=== PATIENT | male | born 1965 | race Caucasian/White ===

== ENCOUNTER 2022-03-22 13:16 | Outpatient (REF) | payer OTHER, SELFPAY ==
--- NOTE | ~2022-03-22 | CT_ITS ---
EXAMINATION: CT CHEST SCREENING CLINICAL INFORMATION: Current smoker. 40 pack year history. COMPARISON: None. TECHNIQUE: Multidetector volumetric CT imaging of the chest is performed without contrast using low dose technique. Additional 2D coronal and sagittal reformatted images and axial 3D maximum intensity projection (MIP) images are generated on the CT workstation. This CT examination was performed using dose optimization techniques as appropriate, variously including the following: *Automated exposure control *Adjustment of mA and/or kV according to patient size (this includes techniques or standardized protocols for targeted exams where dose is matched to indication/reason for exam; i.e. extremities or head) *Use of iterative reconstruction technique DLP: 47 mGy-cm FINDINGS: LUNGS: There is evidence of mild paraseptal emphysema. There is mild apical pleural and parenchymal scarring. There is a 3 mm peripheral or subpleural lingular nodule axial image 373 series 5. There is a small 2 mm peripheral or subpleural left lower lobe nodule adjacent to the pleural fissure axial image 345 series 5. Probably represents a subpleural lymph node. There is a 2 mm right upper lobe nodule axial image 157 series 5. The lungs are otherwise clear. No endobronchial or endotracheal lesion. MEDIASTINUM: The mediastinum is normal. PLEURA: There is no pleural effusion. No pleural mass or thickening. AXILLA: No lymphadenopathy. UPPER ABDOMEN: Diverticulosis of the colon. OSSEOUS STRUCTURES: There are recent appearing left posterior ninth and 10th rib fractures. There are mild degenerative changes of the spine. CT/CT lung screening IMPRESSION: Emphysema. Small pulmonary nodules or micronodules. Healing left posterior ninth and 10th rib fractures. ASSESSMENT: Lung-RADS category 2: Benign RECOMMENDATION: Annual low-dose chest CT follow-up recommended.
== END 2022-03-22 13:17 | disposition home or self-care (01) ==
LOC: HO.CT 13:16
PROVIDERS: Visit Provider Physician Assistant Medical
DX: F17.210 Nicotine dependence, cigarettes, uncomplicated (principal)
CPT/HCPCS: 71271; G0296

== ENCOUNTER 2023-09-12 09:07 | Outpatient (REF) | payer OTHER, SELFPAY ==
[2023-09-12 11:18] LABS: MANUAL DIFF FLAG NO
[2023-09-12 11:40] LABS: Basophils Percent Auto 0.3 % (0-2); Eosinophils Absolute Auto 0.1 X10*3/uL (0.0-0.4); Eosinophils Percent Auto 0.5 % (0-4); Hematocrit 45.2 % (42.0-52.0); Hemoglobin 15.8 g/dl (14.0-18.0); Imm Gran Abs Auto 0.04 X10*3/uL (0.00-0.03); Imm Gran Pct Auto 0.4 % (0.0-0.4); Lymphocytes Absolute Auto 2.7 X10*3/uL (1.2-4.9); Lymphocytes Percent Auto 29.6 % (20-40); Mean Corpuscular Hemoglobin 31.5 pg (27.0-33.0); Mean Corpuscular Volume 90.2 fL (80.0-98.0); Mean Platelet Volume 10.5 fL (9.4-12.4); Monocytes Absolute Auto 0.8 X10*3/uL (0.1-1.2); Monocytes Percent Auto 8.8 % (2-11); Neutrophils Absolute Auto 5.6 x10*3/uL (2.0-8.3); Neutrophils Percent Auto 60.4 % (45-73); Platelet Count 250 X10*3/uL (160-400); Red Blood Count 5.01 X10*6/uL (4.60-5.80); Red Cell Distribution Width 11.8 % (11.0-16.0); White Blood Count 9.2 X10*3/uL (4.8-10.8)
[2023-09-12 12:10] LABS: Cholesterol 227 mg/dL (<200); HDL Cholesterol 52 mg/dL (>40); LDL Cholesterol Calculated 147 mg/dL (<100); Triglycerides 143 mg/dL (<150)
[2023-09-12 12:11] LABS: Alanine Aminotransferase 26 U/L (0-40); Albumin Level 4.6 g/dL (3.5-5.0); Alkaline Phosphatase 62 U/L (39-117); Anion Gap 11 (12-20); Aspartate Amino Transferase 19 U/L (5-37); Bilirubin Total 0.6 mg/dL (0.0-1.0); Blood Urea Nitrogen 13 mg/dL (9-16); Calcium 9.6 mg/dL (8.4-10.2); Carbon Dioxide 24 mmol/L (22-29); Chloride 107 mmol/L (96-108); Estimated Glomerular Filt Rate > 60; Glucose Random 100 mg/dL (60-115); Potassium 4.1 mmol/L (3.3-5.1); Sodium 138 mmol/L (135-145)
[2023-09-12 12:20] LABS: Syphilis Screen Nonreactive (Nonreactive)
[2023-09-12 12:38] LABS: Reflex LDLD? No
[2023-09-12 14:45] LABS: CT PCR NOT DETECTED (Not Detect.); NG PCR NOT DETECTED (Not Detect.)
[2023-09-13 16:34] LABS: HIV RNA PCR Qn Copies <20 DETECTED copies/mL (NOT DETECTED); HIV RNA PCR Qn Log Copies <1.30 DETECTED (NOT DETECTED)
[2023-09-14 17:14] LABS: TS Negative Control Passed; TS Panel A 0; TS Panel B 0; TS Positive Control Passed; TSpotTB Negative (Negative)
[2023-09-15 07:08] LABS: Absolute CD3 Count 2471 cells/uL (840-3060); Absolute CD4 Count 1409 cells/uL (490-1740); Absolute CD8 Count 1081 cells/uL (180-1170); Absolute Lymphocytes 2811 cells/uL (850-3900); Percent CD3 Cells 88 % (57-85); Percent CD4 Cells 50 % (30-61); Percent CD8 Cells 38 % (12-42)
== END 2023-09-12 09:08 | disposition home or self-care (01) ==
LOC: HO.HHCL 09:07
PROVIDERS: Visit Provider Student in an Organized Health Care Education/Training Program
DX: Z11.1 Encounter for screening for respiratory tuberculosis (principal); Z21 Asymptomatic human immunodeficiency virus [HIV] infection status; Z20.2 Contact with and (suspected) exposure to infections with a predominantly sexual mode of transmission; E78.5 Hyperlipidemia, unspecified
CPT/HCPCS: 0353U; 36415; 80053; 80061; 85025; 86359; 86360; 86481; 86780; 87536

== ENCOUNTER 2024-05-06 09:20 | Outpatient (REF) | payer OTHER, SELFPAY ==
[2024-05-06 11:22] LABS: MANUAL DIFF FLAG NO
[2024-05-06 11:34] LABS: Basophils Absolute Auto 0.1 X10*3/uL (0.0-0.2); Basophils Percent Auto 0.6 % (0-2); Eosinophils Absolute Auto 0.1 X10*3/uL (0.0-0.4); Hematocrit 45.4 % (42.0-52.0); Hemoglobin 15.9 g/dl (14.0-18.0); Imm Gran Abs Auto 0.04 X10*3/uL (0.00-0.03); Imm Gran Pct Auto 0.4 % (0.0-0.4); Lymphocytes Absolute Auto 2.6 X10*3/uL (1.2-4.9); Lymphocytes Percent Auto 27.8 % (20-40); Mean Corpuscular Hemoglobin 31.9 pg (27.0-33.0); Mean Platelet Volume 10.2 fL (9.4-12.4); Monocytes Absolute Auto 0.9 X10*3/uL (0.1-1.2); Monocytes Percent Auto 9.3 % (2-11); Neutrophils Absolute Auto 5.6 x10*3/uL (2.0-8.3); Neutrophils Percent Auto 60.9 % (45-73); Platelet Count 247 X10*3/uL (160-400); Red Blood Count 4.99 X10*6/uL (4.60-5.80); Red Cell Distribution Width 11.9 % (11.0-16.0); White Blood Count 9.2 X10*3/uL (4.8-10.8)
[2024-05-06 11:55] LABS: Alanine Aminotransferase 21 U/L (0-40); Albumin Level 4.6 g/dL (3.5-5.0); Alkaline Phosphatase 71 U/L (39-117); Anion Gap 14 (12-20); Aspartate Amino Transferase 19 U/L (5-37); Bilirubin Total 0.7 mg/dL (0.0-1.0); Blood Urea Nitrogen 11 mg/dL (9-16); Calcium 9.6 mg/dL (8.4-10.2); Carbon Dioxide 24 mmol/L (22-29); Chloride 105 mmol/L (96-108); Estimated Glomerular Filt Rate > 60; Glucose Random 95 mg/dL (60-115); Potassium 4.4 mmol/L (3.3-5.1); Sodium 139 mmol/L (135-145)
[2024-05-11 14:48] LABS: HIV RNA PCR Qn Copies NOT DETECTED copies/mL (NOT DETECTED); HIV RNA PCR Qn Log Copies NOT DETECTED (NOT DETECTED)
[2024-05-11 15:18] LABS: Absolute CD3 Count 2304 cells/uL (840-3060); Absolute CD4 Count 1397 cells/uL (490-1740); Absolute CD8 Count 908 cells/uL (180-1170); Absolute Lymphocytes 2645 cells/uL (850-3900); CD4 CD8 Ratio 1.54 (0.86-5.00); Percent CD3 Cells 87 % (57-85); Percent CD4 Cells 53 % (30-61); Percent CD8 Cells 34 % (12-42)
== END 2024-05-06 09:21 | disposition home or self-care (01) ==
LOC: HO.HHCL 09:20
PROVIDERS: Visit Provider Internal Medicine
DX: Z21 Asymptomatic human immunodeficiency virus [HIV] infection status (principal)
CPT/HCPCS: 36415; 80053; 85025; 86359; 86360; 87536

== ENCOUNTER 2024-11-18 08:56 | Outpatient (REF) | payer OTHER, SELFPAY ==
--- OUTSIDE RECORDS SUMMARY | 2024-11-18 09:11 | XMS_ITS | Data Portability ---
Author Organization [facility], [facility], [facility] Address [address] [place] [address] Assessment Encounter Date Assessment Date Assessment LastModified by Organization Details LastModified Time 04/07/2018 04/07/2018 Plantar fasciitis left foot greater than right [email or web address] Not available 04/07/2018 09:22:39 04/28/2018 04/28/2018 -continue w/ New arch supports. -call if not getting better for PT Not available 04/28/2018 08:30:10 Plan of Treatment Reminders Order Date Submit Date Provider Last Modified By Organization Details Last Modified Time Details Appointments None recorded . Lab None recorded . Referral podiatri st referral - L heel pain 2017 018 [email or web address] Josue Julian DPM, [address] [facility], [place], [address], 8 09:45:21 health coaching referral - 52 yo m who wants to do nrt 2017 018 [employer], [address] [place], [address], 9 06:59:01 Procedures None recorded . Surgeries None recorded . Imaging None recorded . Medication Orders nicotine 21 mg/24 hr daily transder mal patch 2017 [id number], [address] [place], [address], 8 08:10:30 Nicotrol 10 mg inhalati on cartridg e 2017 018 [place] [id number], [address] [place], [address], 8 08:10:39 nicotine 21 mg/24 hr daily transder mal patch 2017 018 [facility][id number], [address] [place], [address], 8 08:29:51 Nicotrol 10 mg inhalati on cartridg e 2017 018 [facility]FACE [id number], [address] [place], [address], 8 08:29:50 nicotine (polacri amber) 4 mg gum 2017 018 INTERFACE [id number], [address] [place], [address], 8 08:29:50 Patient TargetsNo targets recorded. Patient Instructions Encounter Date Encounter Id Patient Instructions Last Modified By Organization Details Last Modified Time 01/29/2018 [id number] deciding about using medicines to quit smoking [email or web address] Not available 01/29/2018 10:41:10 Quitting Tobacco : Care Instructions [email or web address] Not available 01/29/2018 10:41:10 Counseling done {{Patient not ready to quit Contemplating quitting Tapering Cigarettes signed up for support prescripti on for stop smoking medication given}} {{Patient not ready to quit Contemplating quitting Tapering Cigarettes signed up for support prescripti on for stop smoking medication given}} Goal for follow up visit {{adding exercise regular meals stress management improvi ng sleep therapist identifying sponsor}} {{adding exercise regular meals stress management improvi ng sleep therapist identifying sponsor}} {{adding exercise regular meals stress management improvi ng sleep therapist identifying sponsor}}My Health To Do List {{go to [facility] Call Center or call sig n up for mauricio text 2 quit or other stop smoking mauricio contact SpaceCur[employer].gov}} {{go to [employer] Call Center or call sig n up for mauricio text 2 quit or other stop smoking mauricio contact [employer]}} {{go to Virtual Call Center or call sig n up for mauricio text 2 quit or other stop smoking mauricio contact [employer]}} [email or web address] Not available 01/29/2018 10:33:18 03/24/2018 [id number] Counseling done {{Patient not ready to quit Contemplating quitting* Tapering Cigarettes signed up for support prescripti on for stop smoking medication given}} {{Patient not ready to quit Contemplating quitting Tapering Cigarettes signed up for support prescripti on for stop smoking medication given*}} Goal for follow up visit {{adding exercise regular meals stress management* improv ing sleep therapist identifying sponsor}} {{adding exercise regular meals stress management improvi ng sleep therapist identifying sponsor}} {{adding exercise regular meals stress management improvi ng sleep therapist identifying sponsor}} After a discussion of treatment and medication options, which included consideration of the best practices in medicine, a medical plan was provided. The patient's opinions and concerns were included in this treatment plan and goal. {{go to Virtual Call Center or call sig n up for mauricio text 2 quit or other stop smoking mauricio contact [employer]}} {{go to Virtual Call Center or call sig n up for mauricio text 2 quit or other stop smoking mauricio contact [employer]}} follow up in 1 month for smoking. {{go to Virtual Call Center or call sig n up for mauricio text 2 quit or other stop smoking mauricio contact smokeLabDoor.gov}} Counseling done {{Patient not ready to quit Contemplating quitting Tapering Cigarettes signed up for support prescripti on for stop smoking medication given}} {{Patient not ready to quit Contemplating quitting Tapering Cigarettes signed up for support prescripti on for stop smoking medication given}} Goal for follow up visit {{adding exercise regular meals stress management improvi ng sleep therapist identifying sponsor}} {{adding exercise regular meals stress management improvi ng sleep therapist identifying sponsor}} {{adding exercise regular meals stress management improvi ng sleep therapist identifying sponsor}} My Health To Do List {{go to quitPearlfection[employer] or call sig n up for mauricio text 2 quit or other stop smoking mauricio contact smokefrRAREFORM.gov}} {{go to quitBushido or call sig n up for mauricio text 2 quit or other stop smoking mauricio contact smokefree.gov}} {{go to quitBushido or call sig n up for mauricio text 2 quit or other stop smoking mauricio contact smokeLabDoor.gov}} Not available 03/24/2018 17:29:45 04/07/2018 [id number] Patient states h e will pursue prefabricated orthotics at this time and return if symptoms persist. [email or web address] Not available 04/07/2018 09:22:54 04/28/2018 [id number] deciding about using medicines to quit smoking Not available 04/28/2018 08:29:49 Counseling done {{Patient not ready to quit Contemplating quitting* Tapering Cigarettes signed up for support prescripti on for stop smoking medication given}} {{Patient not ready to quit Contemplating quitting Tapering Cigarettes signed up for support prescripti on for stop smoking medication given}} -After a discussion of treatment and medication options, which included consideration of the best practices in medicine, a medical plan was provided. The patient's opinions and concerns were included in this treatment plan and goal. -SEE THE GOALS AND PLAN IN THE ASSESSMENT AND PLAN SECTION WRITTEN ABOVE. {{go to quitBushido or call sig n up for mauricio text 2 quit or other stop smoking mauricio contact smokefree.gov}} {{go to quitBushido or call sig n up for mauricio text 2 quit or other stop smoking mauricio contact smokefree.gov}} {{go to quitBushido or call sig n up for mauricio text 2 quit or other stop smoking mauricio contact [employer]}} Not available 04/28/2018 08:31:39 07/09/2018 [id number] deciding about using medicines to quit smoking Not available 07/09/2018 08:26:07 Quitting Tobacco : Care Instructions Not available 07/09/2018 08:26:07 -Push fluids -Re st -Prop up to sleep -Rapid negative for strep -Throat culture will back 48 hours -1 tbsp. honey in warm liquid to help with cough if needed -Symptoms may worsen for the first 7-10 days before they improve -For high fever (>101) for more than 3 days, worsening shortness of breath, cough productive of rust-colored mucus (not dark yellow), or symptoms unchanged at two weeks, come back in for reassessment (urgent care available in [place] office Sat 9-4 and Friday 9-12 by appointment - call after 8AM for appt. [phone]) Not available 07/09/2018 08:30:11 Reason for Referral Information Receptionist Referral for Plan tar fasciitis L heel pain Referring Physician: Paula Carmona, Family Medicine, Encounter Date: 03/24/2018 Health Coaching Referral for Tobacco user 52 yo m who wants to do nrt Referring Physician: Paula Carmona Family Medicine, Encounter Date: 04/28/2018 Results Created Date Observation Date Name Description Value Unit Range Abnormal Flag Note LastModifiedBy Organization Detail LastModifiedTime 07/09/20 18 07/09/2018 pocst pa strep A POC Negati ve Not Available [address], [place], [address], 07/09/2018 08:26:19 07/09/20 18 07/12/2018 cultu re, throa t culture, throat CULTU RE, THROA T MICRO NUMBE R: [id number] TEST STATU S: FINAL SPECI MEN SOURC E: THROA T SPECI MEN QUALI TY: ADEQU ATE RESUL T: No oroph aryng eal patho gens recov ered. Not Available [facility] [address], [place], [address], 07/14/2018 09:57:21 Result Notes None recorded. Procedures Surgical History Date Name Laterality Status Provider Name and Address Organization Details Recorded Time 3 Khoa - Colonoscopy completed Garfield Couch MD [address] [place] [address], [id number], [facility] 10/21/2022 14:15:03 Imaging Results None recorded. Procedure Notes None recorded. Medical Equipment None Reported. Allergies No known drug allergies Medications Name Sig Start Date Stop Date Status Note LastModified by Organization Details LastModified Time amoxicilli n 500 mg capsule 1 po tid x10d 03/18 completed Pt no longer taking. Not Available Not Available Not Available nicotine 14 mg/24 hr daily transderma l patch Apply 1 patch every day by transder mal route. 03/18 completed Pt no longer taking. Not Available Not Available Not Available nicotine (polacrile x) 2 mg gum Chew 1 piece of gum every 2 hours by oral route. 2012 active Not Available Not Available Not Avai lable Zithromax Z-Kristopher 250 mg tablet Take 2 tablets (500 mg) by oral route once daily for 1 day then 1 tablet (250 mg) by oral route once daily for 4 days 2014 active Not Available Not Available Not Avai lable Wellbutrin SR 150 mg tablet, 12 hr sustained- release Take 1 tablet twice a day by oral route for 90 days. 03/18 completed Pt no longer taking. Not Available Not Available Not Available Nicotrol 10 mg inhalation cartridge 6-16 cartridg es/day inhaled prn 2017 active Not Available Not Available Not Avai lable Tessalon Perles 100 mg capsule Take 1-2 capsules up to 3 times a day as needed for cough 03/18 completed Pt no longer taking. Not Available Not Available Not Available nicotine (polacrile x) 4 mg gum Chew 1 piece of gum every 2 hours by oral route as needed. 2017 active Not Available Not Available Not Avai lable doxycyclin e monohydrat e 100 mg capsule Take 1 capsule twice a day by oral route for 21 days. 10/08 completed Not Available Not Available Not Available bupropion HCl 75 mg tablet Take 1 tablet twice a day by oral route for 30 days. 2013 active Not Available Not Available Not Avai lable nicotine 21 mg/24 hr daily transderma l patch Apply 1 patch every day by transder mal route. 2017 active Not Available Not Available Not Avai lable Viagra 100 mg tablet 1/4 to 1 tab 30 min before sexual activity 03/18 completed Not Available Not Available Not Available amoxicilli n 875 mg-potassi um clavulanat e 125 mg tablet Take 1 tablet every 12 hours by oral route for 10 days. 10/01 completed Not Available Not Available Not Available vitamin A and D 1 tab 01/29 completed Not Available Not Available Not Available Flonase Allergy Relief 50 mcg/actuat ion nasal spray,susp ension [place] 1 spray every day by intranas al route. 03/18 completed Pt no longer taking. Not Available Not Available Not Available Vitals None Recorded Social History Question Answer Notes LastModified by Organizat ion Details LastModified Time What Is Your Level Of Alcohol Consumption? Occasional 0-5/week. No Hx Abuse [id number] Information not available 08/15/2020 Do You Wear A Helmet When Biking? Yes [id number] Information not available 08/15/2020 What Is Your Level Of Caffeine Consumption? Moderate 2 Cups A Day [id number] Information not available 08/15/2020 How Much Tobacco Do You Chew? None [id number] Information not available 08/15/2020 What Type Of Diet Are You Following? 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 No [id number] Information not available 08/15/2020 Live Alone Or With Others? With Others [email or web address] Information not available 09/12/2011 Does The Patient Have Difficulty Speaking [place]er? No Information not available 09/21/2013 Does The Patient Have Difficulty Reading [place]er? No Information not available 09/21/2013 Patient Has Health Care Proxy Signed And In Chart No 01/22/17 [email or web address] Information not available 10/29/2011 Marital Status Informa tion not available 09/21/2013 Mosquito Repellent Used Routinely Yes Information not available 09/21/2013 What Was The Date Of Your Most Recent Tobacco Screening? 03/24/2018 [id number] Information not available 08/15/2020 How Many Children Do You Have? 1 Son B'14 [id number] Information not available 08/15/2020 What Is Your Current Pack Years? 20-29packyears [id number] Information not available 08/15/2020 Seat Belts Used Routinely Yes Information not available 09/21/2013 Are You Sexually Active? Yes [id number] Information not available 08/15/2020 Smoke Alarm In Home Yes Information not available 09/21/2013 At What Age Did You Start Smoking Tobacco? 17 [id number] Information not available 08/15/2020 Do You Use Sunscreen Routinely? Yes [id number] Information not available 08/15/2020 Sex: Unknown Functional Status None recorded. Mental Status None recorded. Family History Nothing Reported Notes:adopted, does not know family history VINNIE: 0 SON: 1: a&w Medical History No medical history recorded. Past Encounters Encounter ID Performer Location Encounter Start Date Encounter Closed Date Diagnosis/Indication Diagnosis SNOMED-CT Code Diagnosis ICD10 Code Diagnosis Note [id number] [facility], OFFICE [address] [place] [address] 09/12/2011 14:57:42 09/12/2011 16:02:50 [id number] [facility] , [address] [place] [address] 09/12/2011 16:06:21 09/13/2011 11:21:20 [id number] [facility] , [address] [place] [address] 09/13/2011 08:10:44 09/16/2011 14:26:[id number] [facility], OFFICE [address] [place] [address] [place] [address] 10/29/2011 08:04:20 10/29/2011 08:53:09 [id number] [facility], OFFICE [address] [place] [address] [place] [address] 02/10/2012 11:20:21 02/10/2012 12:25:58 [id number] Jannie Pacheco FERNÁNDEZ, [facility] OFFICE [address] [place] [address] [place] [address] 12/11/2012 10:41:54 12/11/2012 11:21:11 [id number] SHAREE Chamberlain [facility], OFFICE [address] [place] [address] [place] [address] 02/26/2013 14:49:43 02/26/2013 15:57:55 [id number] JOLENE [facility], OFFICE [address] [place] [address] [address] [place], [place] [address] 04/05/2013 09:51:55 04/05/2013 10:34:59 [id number] Janis FERNÁNDEZ [address] [place] [address] 09/21/2013 08:01:27 09/21/2013 08:36:16 [id number] SHAREE Chamberlain [facility], [address] [place] [address] 03/14/2014 16:03:38 03/14/2014 16:34:04 [id number] CATRINA Dhillon, [address] [place] [address] 08/26/2014 13:50:15 08/26/2014 14:23:25 [id number] SHAREE Chamberlain [address] [place] [address] 02/10/2015 10:16:58 02/10/2015 11:30:31 [id number] Alycia FERNÁNDEZ [facility], OFFICE [address] [place] [address] [place] [address] 06/23/2015 07:45:22 06/23/2015 08:17:20 [id number] Елена Smith, OT Physical Therapy, [address] [place] [address] 07/03/2015 15:48:26 07/03/2015 16:38:43 [id number] DOUGLAS Luna, [facility], OFFICE [address] [place] [address] 10/08/2016 10:31:23 10/08/2016 11:24:50 [id number] NUHA Polanco, [facility], OFFICE [address] [place] [address] 01/22/2017 13:35:58 01/23/2017 14:29:04 [id number] MD JOLENE Potter, [facility], OFFICE [address] [place], [place] [address] 03/18/2017 13:40:02 03/18/2017 14:21:20 [id number] Aline Oscar MD , [facility], OFFICE [address] [place] [address] 10/01/2017 08:46:16 10/01/2017 09:28:56 [id number] NUHA Polanco, [facility], OFFICE [address] [place] [address] [place] [address] 01/29/2018 10:20:38 01/29/2018 10:58:39 [id number] Paula Carmona NP , [facility], OFFICE [address] [place] [address], [place] [address] 03/24/2018 16:15:04 03/24/2018 17:23:50 [id number] Josue Julian DPM Podiatry, [address] [address] 04/07/2018 08:49:03 04/07/2018 09:24:01 [id number] Paula Carmona NP , [facility], OFFICE [address] [place] [address], [place] [address] 04/28/2018 07:58:52 04/28/2018 08:36:19 [id number] Gabriella Pederson , [facility], OFFICE [address] [place] [address] 07/09/2018 08:07:48 07/09/2018 08:31:24 [id number] Farzana Cagle RN Endoscopy , [facility] [address] [place] [address] 10/21/2022 12:51:59 10/22/2022 08:23:57 Health Concerns Section Related Observation LastModified by Organization Detai ls LastModified Time None Recorded Concern Status LastModified by Organization Details LastModified Time None Recorded Advance Directives Directive None Recorded Payers Encounter Date Sequence Insurance Name Policy Number Policy Craven Covered Member ID Craven Member ID Guarantor Name 01/29/2018 1 [facility] [id number] 01 Geo Gardner [id number] Geo Gardner 03/24/2018 1 [facility] [id number] 01 Geo Gardner [id number] Geo Gardner 04/07/2018 1 [facility] [id number] 01 Geo Gardner [id number] Geo Gardner 04/28/2018 1 [facility] [id number] 01 Geo Gardner [id number] Geo Gardner 07/09/2018 1 [facility] [id number] 01 Geo Gardner [id number] Geo Gardner
--- OUTSIDE RECORDS SUMMARY | 2024-11-18 09:11 | XMS_ITS | Data Portability ---
Author Organization [place] - [facility], , [facility] Address [address] [place] [address] Assessment Encounter Date Assessment Date Assessment LastModified [...] referral - L heel pain 2017 018 Josue Julian DPM, [address] [facility], [place], [address], 8 09:45:21 health coaching referral - 52 yo m who wants to do nrt 2017 018 S[facility], [address] [place], [address], 9 06:59:01 Procedures None recorded . Surgeries None recorded . Imaging None recorded . Medication Orders nicotine 21 mg/24 hr daily transder mal patch 2017 [facility], [address] [place], [address], 8 08:10:30 Nicotrol 10 mg inhalati on cartridg e 2017 018 [employer] [facility], [address] [place], [address], 8 08:10:39 nicotine 21 mg/24 hr daily transder mal patch 2017 018 [facility], [address] [place], [address], 8 08:29:51 Nicotrol 10 mg inhalati on cartridg e 2017 018 [facility], [address] [place], [address], 8 08:29:50 nicotine (polacri amber) 4 mg gum 2017 018 [facility], [address] [place], [address], 8 08:29:50 Patient TargetsNo targets recorded. Patient Instructions Encounter Date Encounter Id Patient Instructions Last Modified By Organization Details Last Modified Time 01/29/2018 [id number] deciding about using medicines to quit smoking [...] sponsor}}My Health To Do List {{go to TandemLaunch or call sig n up for mauricio text 2 quit or other stop smoking mauricio contact DNS:Net.gov}} {{go to TandemLaunch or call sig n up for mauricio text 2 quit or other stop smoking mauriico contact DNS:Net.gov}} {{go to TandemLaunch or call sig n up for mauricio text 2 quit or other stop smoking mauricio contact DNS:Net.gov}} [email or web address] Not available 01/29/2018 10:33:18 03/24/2018 [id number] Counseling done {{Patient not ready to quit [...] this treatment plan and goal. {{go to TandemLaunch or call sig n up for mauricio text 2 quit or other stop smoking mauricio contact DNS:Net.gov}} {{go to TandemLaunch or call sig n up for mauricio text 2 quit or other stop smoking mauricio contact DNS:Net.gov}} follow up in 1 month for smoking. {{go to TandemLaunch or call sig n up for mauricio text 2 quit or other stop smoking mauricio contact smokeDark Mail Alliance.gov}} Counseling done {{Patient not ready to quit [...] My Health To Do List {{go to [email or web address] or call sig n up for mauricio text 2 quit or other stop smoking mauricio contact smokefrL3.gov}} {{go to quitPersoneta or call sig n up for mauricio text 2 quit or other stop smoking mauricio contact smokefree.gov}} {{go to quitPersoneta or call sig n up for mauricio text 2 quit or other stop smoking mauricio contact smokeDark Mail Alliance.gov}} Not available 03/24/2018 17:29:45 04/07/2018 [id number] Patient states h e will pursue prefabricated orthotics at this time and return if symptoms persist. [email or web address] Not available 04/07/2018 09:22:54 04/28/2018 [id number] deciding about using medicines to quit smoking [...] AND PLAN SECTION WRITTEN ABOVE. {{go to quitPersoneta or call sig n up for mauricio text 2 quit or other stop smoking mauricio contact smokefree.gov}} {{go to quitPersoneta or call sig n up for mauricio text 2 quit or other stop smoking mauricio contact smokefree.gov}} {{go to quitPersoneta or call sig n up for mauricio text 2 quit or other stop smoking mauricio contact DNS:Net.gov}} Not available 04/28/2018 08:31:39 07/09/2018 [id number] deciding about using medicines to quit smoking [...] in for reassessment (urgent care available in [place] office Sat 9-4 and Friday 9-12 by appointment - call after 8AM for appt. [phone]) Not available 07/09/2018 08:30:11 Reason for Referral Psychiatric Nurse Referral for Plan tar fasciitis L heel [...] strep A POC Negati ve Not Available [address], [place], [address], 07/09/2018 08:26:19 07/09/20 18 07/12/2018 cultu re, throa t culture, throat CULTU RE, THROA T MICRO NUMBE R: [id number] TEST STATU S: FINAL SPECI MEN SOURC E: THROA T SPECI MEN QUALI TY: ADEQU ATE RESUL T: No oroph aryng eal patho gens recov ered. Not Available [facility] [address], [place], [address], 07/14/2018 09:57:21 Result Notes None recorded. Problems Name Problem SNOMED Code Status Onset Date Resolution Date Notes Provider Name and Address Organization Details Recorded Time Upper respiratory infection 34125603 Active 2015 Sangita Maxwell NP-C [address] [place] [address] [place], [address], [facility] 6 11:20:06 Adenomatous polyp of colon 434818095 Active 2016 Colono scopy- - March 2017-- Repeat 5 years Aline Oscar MD [address] [place] [address] [place], [address], [facility] 7 09:28:28 Tobacco user 864175836 Active Elisa Thorne NP [address] [place] [address] [place], [address], [facility] 5 08:23:27 Problem Notes None recorded. Procedures Surgical History Date Name Laterality Status Provider Name and Address Organization Details Recorded Time 8 Smoking cessation counseling completed Gabriella Pederson [address] [place], [address], [facility] 07/09/2018 08:19:58 8 Carbon Monoxide Testing completed Gabriella Pederson [address] [place], [address], [facility] 07/09/2018 08:19:58 8 POC Strep Testing completed Lidia Page [facility] 07/09/2018 08:16:58 8 Smoking cessation counseling completed Lidia Page [facility] 04/28/2018 08:07:28 8 Carbon Monoxide Testing completed Lidia Page [facility] 04/28/2018 08:07:28 8 Smoking cessation counseling completed Paula Carmona NP [address] [place], [address], [facility] 03/24/2018 17:26:50 8 Carbon Monoxide Testing completed Paula Carmona NP [address] [place], [address], [facility] 03/24/2018 17:27:19 8 Smoking cessation counseling completed Roni Springer PA-C [address] [place], [address], [facility] 01/29/2018 10:33:18 8 Carbon Monoxide Testing completed Roni Springer PA-C [address] [place], [address], [facility] 01/29/2018 10:33:18 7 POC Strep Testing completed Mary Chicas [facility] 10/01/2017 08:52:47 7 Smoking cessation counseling completed Arabella Solorzano SENIOR INTEGRATION DEVELOPER [facility] 03/18/2017 13:42:18 7 Carbon Monoxide Testing completed Arabella Solorzano SENIOR INTEGRATION DEVELOPER [facility] 03/18/2017 13:50:15 7 POC Strep Testing completed Arabella Solorzano [facility] 03/18/2017 14:06:36 7 Smoking cessation counseling completed Sandi Ledezma [facility] 01/22/2017 13:59:50 7 Carbon Monoxide Testing completed Sandi Ledezma [facility] 01/22/2017 14:10:27 6 Smoking cessation counseling completed Sandi Graff LPN [facility] 10/08/2016 10:44:08 6 Carbon Monoxide Testing completed Sandi Graff LPN [facility] 10/08/2016 10:50:35 6 POC Flu Testing completed Sandi Graff LPN [facility] 10/08/2016 10:44:43 5 Smoking cessation counseling completed Paulette Farmer MA [facility] 06/23/2015 07:53:13 5 Smoking cessation counseling completed Destinee Maynard LPN [facility] 02/10/2015 10:44:45 4 Smoking cessation counseling completed Albertina Caceres MA [facility] 03/14/2014 16:08:53 3 Smoking cessation counseling completed Rupinder Perry LPN [facility] 02/26/2013 14:56:26 Imaging Results None recorded. Procedure Notes None [...] Relief 50 mcg/actuat ion nasal spray,susp ension [place] 1 spray every day by intranas al route. 03/18 completed Pt no longer taking. Not Available Not Available Not Available Vitals Date Recorded Body height Body mass index (BMI) Body weight Heart rate Oxygen saturation Oxygen saturation in Arterial blood by Pulse oximetry Systolic blood pressure Diastolic blood pressure Provider Name and Address Organization Details Last Updated DateTime 8 171.45 cm 25.4 kg/m2 10920.2 5 g 66 /min 98 % 98 % 120 mm[Hg] 76 mm[Hg] Paulette Farmer MA [facility] 8 10:26:12 Date Recorded Body height Body mass index (BMI) Body weight Heart rate Systolic blood pressure Diastolic blood pressure Provider Name and Address Organization Details Last Updated DateTime 8 171.45 cm 25.6 kg/m2 64057.3 3 g 88 /min 114 mm[Hg] 64 mm[Hg] DAINA Albright [facility] 8 16:31:24 Date Recorded Body height Heart rate Systolic blood pressure Diastolic blood pressure Provider Name and Address Organization Details Last Updated DateTime 04/07/2018 171.45 cm 54 /min 100 mm[Hg] 60 mm[Hg] Khushi Pang RN [facility] 04/07/2018 08:58:18 Date Recorded Body height Body mass index (BMI) Body weight Heart rate Systolic blood pressure Diastolic blood pressure Provider Name and Address Organization Details Last Updated DateTime 8 171.45 cm 25.3 kg/m2 58794.5 5 g 68 /min 112 mm[Hg] 70 mm[Hg] Lidia matos [facility] 8 08:13:08 Date Recorded Body height Body mass index (BMI) Body weight Heart rate Body temperature Systolic blood pressure Diastolic blood pressure Provider Name and Address Organization Details Last Updated DateTime 8 171.45 cm 25.1 kg/m2 25316.0 6 g 64 /min 98.4 [degF] 112 mm[Hg] 68 mm[Hg] Lidia matos [facility] 8 08:16:44 Social History Question Answer Notes LastModified by Organizat ion Details LastModified Time Tobacco Smoking Status Current Every Day Smoker 1/2 ppd since . Has tried wellbutrin /chantix. 03/18/17 CO Result 23 Not Available [facility] 08/15/2020 03:17:55 What Is Your Level Of Alcohol Consumption? Occasional 0-5/week. No Hx Abuse [id number] Information not available 08/15/2020 Do You Wear A Helmet When Biking? Yes [id number] Information not available 08/15/2020 What Is Your Level Of Caffeine Consumption? Moderate 2 Cups A Day [id number] Information not available 08/15/2020 How Much Tobacco Do You Chew? None [id number] Information not available 08/15/2020 What Type Of Diet Are You Following? 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 No [id number] Information not available 08/15/2020 Live Alone Or With Others? With Others [email or web address] Information not available 09/12/2011 Does The Patient Have Difficulty Speaking Mongolian? No Information not available 09/21/2013 Does The Patient Have Difficulty Reading Mongolian? No Information not available 09/21/2013 Patient Has Health Care Proxy Signed And In Chart No 01/22/17 [email or web address] Information not available 10/29/2011 Marital Status jayy Informa tion not available 09/21/2013 Mosquito Repellent Used Routinely Yes Information not available 09/21/2013 What Was The Date Of Your Most Recent Tobacco Screening? 03/24/2018 [id number] Information not available 08/15/2020 How Many Children Do You Have? 1 Son B'14 [id number] Information not available 08/15/2020 What Is Your Current Pack Years? 20-29packyears [id number] Information not available 08/15/2020 Seat Belts Used Routinely Yes Information not available 09/21/2013 Are You Sexually Active? Yes [id number] Information not available 08/15/2020 Smoke Alarm In Home Yes [email or web address] Information not available 09/21/2013 At What Age Did You Start Smoking Tobacco? 17 [id number] Information not available 08/15/2020 Do You Use Sunscreen Routinely? Yes [id number] Information not available 08/15/2020 Sex: Unknown Functional Status None recorded. Mental Status None recorded. Family History Nothing Reported Notes:adopted, does not know family history VINNIE: 0 SON: 1: a&w Medical History No medical history recorded. Immunizations Vaccine Type Date Status Note Provider Nam e and Address Organization Details Recorded Time Tdap 02/10/2012 completed Not Available [facility] 10/30/2019 02:34:57 Influenza, split virus, trivalent, PF 08/26/2014 completed Not Available [facility] 2019 02:19:22 Influenza, split virus, quadrivalent, PF 06/23/2015 completed Not Available [facility] 0 02:26:06 Past Encounters Encounter ID Performer Location Encounter Start Date Encounter Closed Date Diagnosis/Indication Diagnosis SNOMED-CT Code Diagnosis ICD10 Code Diagnosis Note [id number] FP, [facility], OFFICE [address] [place] [address] 09/12/2011 14:57:42 09/12/2011 16:02:50 [id number] Radiology , [facility] [address] [place] [address] 09/12/2011 16:06:21 09/13/2011 11:21:20 [id number] Radiology , [facility] [address] [place] [address] 09/13/2011 08:10:44 09/16/2011 14:26:44 [id number] [facility], OFFICE [address] [place] [address] 10/29/2011 08:04:20 10/29/2011 08:53:09 [id number] [facility] OFFICE [address] [place] [address] [place] [address] 02/10/2012 11:20:21 02/10/2012 12:25:58 [id number] Jannie Pacheco [facility] OFFICE [address] [place] [address] [place] [address] 12/11/2012 10:41:54 12/11/2012 11:21:11 [id number] Paulette Farmer MA [facility], OFFICE [address] [place] [address] 02/26/2013 14:49:43 02/26/2013 15:57:55 [id number] [facility] OFFICE [address] [place] [address] [place] [address] 04/05/2013 09:51:55 04/05/2013 10:34:59 [id number] Janis Colvin [facility], OFFICE [address] [place] [address] 09/21/2013 08:01:27 09/21/2013 08:36:16 Skin lesion 06101338 Pt here after he noticed that a previously seen hyperpigme nted spot on his left leg started to increase in size and changed color to a redish purplish hue from a previously brown color, pt recetnly became aware of the change and wanted to have it checked. On exam he has a 3 mm approx skin lesion that varies in color from brown to redish to purplish, and has what it seems as a tiny area of scoriation . Pt admits that he is under the sun constantly (has a boat) and even though he tries to use sun screen as much as possible sometime he forgets. He has very fair skin and numerous freckles, I think given the change in size and color of lesion further evaluation by a dermatolof y specialist is warranted to r/o a malignant lesion of the skin. [id number] Paulette Farmer MA , [facility], OFFICE [address] [place] [address] 03/14/2014 16:03:38 03/14/2014 16:34:04 Tobacco user 567073913 counseled for 7 minutes Adult [facility] th examination 432619066 healthy see Risk Assessment and Lifestyle Change Counseling section above Counseling [id number] Skin lesion 34115599 Pt seen previously for a hyperpigme nted spot on his left leg started to increase in size and changed color to a redish purplish hue from a previously brown color, pt recetnly became aware of the change and wanted to have it checked. Pt was seen by Dermatolog ist on 09/30 who recommende d he came back to see him in October 2013 for considerat ion of a punch biopsy. pt decided to watch it, has not noticed any change in size or color, will see his dermatolog ist if he feels it does change. [id number] Destinee Maynard LPN , [facility], OFFICE [address] [place] [address] 08/26/2014 13:50:15 08/26/2014 14:23:25 Influenza vaccine needed 0674573981 106 Pain in upper limb 125103743 sees acupunctur ist Dr Buitrago (in [place]) and chiropract or for RUE ulnar parasthesi as with relief. residual focal neck ache post chiropract ic tx. Nicotine dependence 49281056 intolerant of dreams with Chantix had success with zyban at 150 but made him feel odd will try half dose BID. Seborrheic keratosis 32209348 small ton ker over right ear, is excoriated from scratching it x 6 months. tx options including cryo or surhical removal discussed for occasional itch and agreed not bothersome enough to remove. pt will observe and rto prn [id number] SHAREE Chamberlain, [facility], OFFICE [address] [place] [address] 02/10/2015 10:16:58 02/10/2015 11:30:31 Tobacco user 670232492 Bronchitis 86585773 [id number] Alycia FERNÁNDEZ, [facility], OFFICE [address] [place] [address] 06/23/2015 07:45:22 06/23/2015 08:17:20 Tobacco user 059206372 no counseling done. Influenza vaccine needed 0785585843 106 Tendinitis AND/OR tenosynovitis of wrist AND/OR hand 245374668 Likely de quervain tenosynovi tis advised PT, ice, c/w topical tx arnica referral submitted f/u prn [id number] Елена Smith, OT Physical Therapy, [facility] [address] [facility] [place] [address] 07/03/2015 15:48:26 07/03/2015 16:38:43 Hand joint pain 769549631 [id number] DOUGLAS Luna , [facility], OFFICE [address] [place] [address] 10/08/2016 10:31:23 10/08/2016 11:24:50 Cigarette smoker 03260378 F17.210 Cough 56868146 R05 Upper resp iratory infection 72539580 J06.9 he is to wait a few more days before he starts the antibiotic [id number] Roni Springer PA-C , [facility], OFFICE [address] [place] [address] 01/22/2017 13:35:58 01/23/2017 14:29:04 Adult health examination 969176181 Z00.00 Benign exam Counseling 376059431 Z71 .9 Cigarette smoker 3363551 7 F17.210 Interested in quitting. Message sent to Malachi Ziegler. May be getting patches from [facility]. Tobacco user 199018698 Z 72.0 Impotence 670065922 N52. 9 Mild. Try viagra. Screening for malignant neoplasm of colon 145643027 Z12.11 Referral for a DIRECT booked colonoscop y. This patient is a healthy ASA Class 1 or 2 patient (only mild systemic disease), or a STABLE, well controlled insulin dependent diabetic. They do not have serious cardiac disease ie [place]/angiopl asty within 1 year, symptomati c CHF; renal failure with CKD 4 or 5; take Coumadin, Plavix, Aggrenox, etc. Hand pain 59556159 M79.6 42 Helped by leyda/acu puncture. Informed can try Audra Zamzam in [facility] n. [id number] Aline Oscar MD , [facility], OFFICE [address] [place] [address] 03/18/2017 13:40:02 03/18/2017 14:21:20 Cigarette smoker 82952232 F17.210 Tobacco user 641223842 Z 72.0 Sore throat 522879696 J0 2.9 Throat cultures are pending. The appearance is similar to peritonsil lar abscess but the swelling is rather diffuse along the left soft palate . The left tonsil is swollen and there may be a small amount of exudate. There is room in the throat to swallow. Dr. Amaya came in to give a second opinion and he felt the swelling represente d more of a superficia l swelling than actual abscess Plan: Augmentin 875 twice a day For 10 days,, gargle with warm salt water per instructio ns below, I am not here tomorrow but will see him in 2 days however he will call tomorrow morning if any worse including developmen t of a fever, just feeling sicker, or any increase in pain, worse difficulty with swallowing , or change in voice. (Hot potato voice). Advice: Increase fluids a great deal, especially drink hot things like soup and tea. Rest, and I recommend napping 1-2 hours a day until you are better. Tylenol and/or ibuprofen for pain. Gargle with warm salt water at least times a day; use 1/8 teaspoon of salt to 6-8 ounces of warm water. NOTE: STREP THROAT, based on positive quick strep test [id number] Aline Oscar MD , [facility], OFFICE [address] [place] [address] 10/01/2017 08:46:16 10/01/2017 09:28:56 Sore throat 616396612 J02.9 Your sore throat is not felt to be a strep throat. It is felt to be viral. In most cases we send a formal culture to the lab to confirm this. Advice: Increase fluids a great deal, especially drink hot things like soup and tea. Rest, and I recommend napping 1-2 hours a day until you are better. Tylenol and/or ibuprofen for pain. Gargle with warm salt water several times a day; use 1/8 teaspoon of salt to 6-8 ounces of warm water. If your sore throat is still present in 5-7 days please contact us, and call sooner if you are developing significan t worsening such as developing a fever or inability to tolerate any oral intake. Acute uppe r respiratory infection 28173626 J06.9 You have an upper respirator y infection. These are generally caused by viruses and do not respond to antibiotic s. The most important things to do are getting extra rest, additional fluids especially hot things like tea and soup, and some nasal spray that I will explain. As far as the rest I recommend napping. This will help your immune system to fight this off. The most important nasal spray is SALT WATER NOSE DROPS which is helpful for thinning out the mucus and for keeping your nose from getting very dry. Please use it FREQUENTLY . This can be found over-the-c ounter at all drugstores . -1 tbsp. honey in warm liquid to help with cough If you are still having the same symptoms 7-10 days from now please return to be reevaluate d. call us sooner if you are getting worse such as -For high fever (>101) for more than 3 days, worsening shortness of breath, cough productive of rust-color ed mucus, or marked increase of dark yellow or dark green mucus. Tobacco user 501858329 Z 72.0 Smokes 7-8 cigarettes a day, working on quitting and trying to quit by New Day. Encouraged to continue with this plan. Cigarette smoker 7024342 7 F17.356 [id number] Roni Springer PA-C , [facility], OFFICE [address] [place] [address] 01/29/2018 10:20:38 01/29/2018 10:58:39 Cigarette smoker 03975183 F17.210 Interested in quitting. Working on it. Tobacco user 747153784 Z 72.0 Palpitations 15648284 R0 0.2 Nl w/u in [facility]> Even had palpitatio n sx when on the monitor. IF persisting , call and I'll set up holter monitor. [id number] Paula Carmona NP , [facility], OFF[address] [place] [address] 03/24/2018 16:15:04 03/24/2018 17:23:50 Plantar fasciitis 456385652 M72.2 -Ice-Heel cup-Stetch ing exercises from Patient Advisor Tobacco user 019354361 Z 72.0 -follow up in 1 month [id number] Josue Julian DPM Podiatry, [address] [address] 04/07/2018 08:49:03 04/07/2018 09:24:01 Plantar fasciitis 809576084 M72.2 [id number] Paula Carmona NP , [facility], OFFICE [address] [place] [address] 04/28/2018 07:58:52 04/28/2018 08:36:19 Cigarette smoker 07665784 F17.210 Tobacco user 197063523 Z 72.0 -follow up in 1 month [id number] Gabriella Pederson , [facility], OFFICE [address] [place] [address] 07/09/2018 08:07:48 07/09/2018 08:31:24 Acute upper respiratory infection 26650653 J06.9 More likely viral URI/gastro enteritis Cigarette smoker 4945314 7 F17.210 Tobacco user 783051997 Z 72.0 Pain in throat 743037955 R07.0 [id number] Farzana Cagle, photograph finisher , [address] [address] 10/21/2022 12:51:59 10/22/2022 08:23:57 Health Concerns Section Related Observation LastModified by Organization Detai ls LastModified Time None Recorded Concern Status LastModified by Organization Details LastModified Time None Recorded Advance Directives Directive None Recorded Payers Encounter Date Sequence Insurance Name Policy Number Policy Craven Covered Member ID Craven Member ID Guarantor Name 01/29/2018 1 [facility] [id number] [facility] [place] [id number] [facility] [place] 03/24/2018 1 [facility] [id number] [facility] [place] [id number] [facility] [place] 04/07/2018 1 [facility] [id number] [employer] [place] [id number] [employer] [facility] [place] 04/28/2018 1 [facility] [id number] [employer] [place] [id number] [employer] [facility] [place] 07/09/[address] [place] [address] [id number] [facility] [place] [id number] [facility] [place] Notes Date Note Type Note Provider Name and Address Organization Details Recorded Time 01/29/2018 text/html a/vmg-smoking [id number] bypatient.Notes:~1/2pp d. trying to cut back FU [facility] ER for arm tingling/CP. Deemed URI/dehydration related. Nl cardiac care nurse/CXR.Still feels like heart races now and then. Still some stress in his life.When checks BP, <140/90. But rate was 115 when went to ER. But was like that when on the monitor. Roni Springer PA-C [address] [place] [address], [phone], [facility] 01/29/2018 10:43:40 03/24/2018 text/html a/vmg-smoking [id number] bypatient.Notes:ready to quit *03/24/18* Pt stands for 10+ hours a day, having L foot pain that does not go away, fades a little after it loosens up but does not go away, pt unable to walk at the end of the day. R foot is sore at the end of the day, ? due to standing so long. Pt has HX of sprained ankle on L foot. Please note there is a lump on the outside of the L foot- pt denies pain or itching. Has had px for several yrs.Hurts to stand on it in amREst helps it.Wearing diff shoes taco help it.No injury.Sprained ankle 3 yr ago.No swelling of ankle.[employer] - at [facility]. Paula Carmona NP [address] [place], [address], [facility] 03/24/2018 17:31:25 04/07/2018 text/html Patient presents to the office complaining of pain under the bottoms of both of his heels left greater than right. Patient states symptoms have been present over the past several months which are most acute weightbearing after rest, but also seemed to worsen with increased weightbearing activity throughout the day. Patient without complaints of swelling or discoloration. Josue Julian DPM [address] [place], [address], [facility] 04/07/2018 09:23:10 04/28/2018 text/html a/vmg-smoking [id number] bypatient.Lnein haynes #, has talked to him. and gets text; cant do meeting; QW referral done tdy.Notes:ready to quit *04/28/18* Pt has been doing stretching, L foot not great but better, R foot better. Did not start smoking cessation aids due to cost, will recheck with new insurance to see if he can afford now. Foot is betterWearing arch support- now Trying to stretchIcing occassionallyDoes not want to do PT or see podiatry againOcc doing stretches at home Paula Carmona NP [address] [place], [address], [facility] 04/28/2018 08:38:36 07/09/2018 text/html VMG URI Flu like SymptomsReported bypatient.Duration:sta rted 5 days ago Associated Symptoms:No congestion; No sinus pressure; No sputum production; No abdominal pain;fever/chills(subj ective);Headache;Non productive cough;Ear fullness bilateral;Sore throat;Nausea(initiall y, no improving);Diarrhea(in itially, no improving) Context:Sick contacts at home (son is sick); Smokera/vmg-smoking [id number] bypatient.Physiologica l Dependence/Health RiskCurrently smoking (10-20 cig/day - varies) Gabriella Pederson [address] [place], [address], [facility] 07/09/2018 08:30:54
[2024-11-18 11:17] LABS: MANUAL DIFF FLAG NO
[2024-11-18 11:22] LABS: Basophils Percent Auto 0.4 % (0-2); Eosinophils Absolute Auto 0.1 X10*3/uL (0.0-0.4); Eosinophils Percent Auto 0.8 % (0-4); Hematocrit 43.9 % (42.0-52.0); Hemoglobin 15.7 g/dl (14.0-18.0); Imm Gran Abs Auto 0.02 X10*3/uL (0.00-0.03); Imm Gran Pct Auto 0.3 % (0.0-0.4); Lymphocytes Absolute Auto 2.3 X10*3/uL (1.2-4.9); Lymphocytes Percent Auto 31.8 % (20-40); Mean Corpuscular HGB Conc 35.8 g/dl (31.0-36.0); Mean Corpuscular Hemoglobin 31.7 pg (27.0-33.0); Mean Corpuscular Volume 88.7 fL (80.0-98.0); Mean Platelet Volume 10.1 fL (9.4-12.4); Monocytes Absolute Auto 0.6 X10*3/uL (0.1-1.2); Monocytes Percent Auto 8.6 % (2-11); Neutrophils Absolute Auto 4.3 x10*3/uL (2.0-8.3); Neutrophils Percent Auto 58.1 % (45-73); Platelet Count 228 X10*3/uL (160-400); Red Blood Count 4.95 X10*6/uL (4.60-5.80); Red Cell Distribution Width 11.8 % (11.0-16.0); White Blood Count 7.4 X10*3/uL (4.8-10.8)
[2024-11-18 11:39] LABS: Alanine Aminotransferase 38 U/L (0-40); Albumin Level 4.7 g/dL (3.5-5.0); Alkaline Phosphatase 67 U/L (39-117); Anion Gap 12 (12-20); Aspartate Amino Transferase 26 U/L (5-37); Bilirubin Total 0.6 mg/dL (0.0-1.0); Blood Urea Nitrogen 12 mg/dL (9-16); Calcium 9.7 mg/dL (8.4-10.2); Carbon Dioxide 25 mmol/L (22-29); Chloride 106 mmol/L (96-108); Cholesterol 185 mg/dL (<200); Estimated Glomerular Filt Rate > 60; Glucose Random 101 mg/dL (60-115); HDL Cholesterol 57 mg/dL (>40); LDL Cholesterol Calculated 110 mg/dL (<100); Potassium 4.5 mmol/L (3.3-5.1); Sodium 138 mmol/L (135-145); Total Protein 8.4 g/dL (6.5-8.0); Triglycerides 91 mg/dL (<150)
[2024-11-18 11:47] LABS: Reflex LDLD? No
[2024-11-18 11:55] LABS: Syphilis Screen Nonreactive (Nonreactive)
[2024-11-18 11:56] LABS: HBS Num1 329.73 mIU/mL (0-7.99); HBc Num1 6.99 S/CO (0.00-0.79); HBsAGNum1 0.38 S/CO (0.00-0.99); Hepatitis B Surface Antigen Negative (Negative); ~Hepatitis B Surface Antibody REACTIVE (Nonreactive)
[2024-11-18 11:59] LABS: Hepatitis A Antibody IgG Nonreactive (Nonreactive); ~Hepatitis A Antibody IgG 0.67 S/CO (0.00-0.99)
[2024-11-18 12:30] LABS: HBc Num2 6.87 S/CO; HBc Num3 6.88 S/CO
[2024-11-18 12:31] LABS: Hepatitis B Core Antibody Reactive (Nonreactive)
[2024-11-18 13:34] LABS: CT PCR NOT DETECTED (Not Detect.); NG PCR NOT DETECTED (Not Detect.)
[2024-11-19 15:04] LABS: HIV RNA PCR Qn Copies 72 copies/mL (NOT DETECTED); HIV RNA PCR Qn Log Copies 1.86 (NOT DETECTED)
[2024-11-19 18:54] LABS: Hepatitis B Viral DNA Qn - cp NOT DETECTED Log IU/mL (NOT DETECTED); Hepatitis B Viral DNA Qn-IU/mL NOT DETECTED (NOT DETECTED)
[2024-11-20 22:08] LABS: TS Negative Control Passed; TS Panel A 1; TS Panel B 0; TS Positive Control Passed; TSpotTB Negative (Negative)
[2024-11-23 15:58] LABS: Absolute CD3 Count 2319 cells/uL (840-3060); Absolute CD4 Count 1210 cells/uL (490-1740); Absolute CD8 Count 1120 cells/uL (180-1170); Absolute Lymphocytes 2619 cells/uL (850-3900); CD4 CD8 Ratio 1.08 (0.86-5.00); Percent CD3 Cells 89 % (57-85); Percent CD4 Cells 46 % (30-61); Percent CD8 Cells 43 % (12-42)
== END 2024-11-18 08:57 | disposition home or self-care (01) ==
LOC: HO.HHCL 08:56
PROVIDERS: Visit Provider Internal Medicine
DX: Z21 Asymptomatic human immunodeficiency virus [HIV] infection status (principal); Z11.1 Encounter for screening for respiratory tuberculosis; Z11.3 Encounter for screening for infections with a predominantly sexual mode of transmission
CPT/HCPCS: 80053; 80061; 85025; 86359; 86360; 86481; 86704; 86706; 86708; 86780; 87340; 87491; 87517; 87536; 87591

== ENCOUNTER 2025-04-22 09:20 | Outpatient (REF) | payer OTHER, SELFPAY ==
--- OUTSIDE RECORDS SUMMARY | 2025-04-22 09:36 | XMS_ITS | Data Portability ---
Author Organization [facility], [facility], [facility] Address [address] [place] [address] Assessment Encounter Date Assessment Date Assessment LastModified [...] recorded . Lab None recorded . Referral health coaching referral - 52 yo m who wants to do nrt 2017 018 [facility], [address] [place], [address], 9 06:59:01 podiatri referral - L heel pain 2017 018 [email or web address] Josue Julian DPM, [address] [place], [address], 8 09:45:21 Procedures None recorded . Surgeries None recorded . Imaging None recorded . Medication Orders nicotine 21 mg/24 hr daily transder mal patch 2017 018 [id number], [address] [place], [address], 8 08:29:51 Nicotrol 10 mg inhalati on cartridg e 2017 018 [facility], [address] [place], [address], 8 08:29:50 nicotine (polacri amber) 4 mg gum 2017 018 [facility], [address] [place], [address], 8 08:29:50 nicotine 21 mg/24 hr daily transder mal patch 2017 018 [facility], [address] [place], [address], 8 08:10:30 Nicotrol 10 mg inhalati on cartridg e 2017 018 [facility], [address] [place], [address], 8 08:10:39 Patient TargetsNo targets recorded. Patient Instructions Encounter Date Encounter Id Patient Instructions Last Modified By Organization Details Last Modified Time 01/29/2018 [id number] deciding about using medicines to quit smoking jpolgar Not available 01/29/2018 10:41:10 Quitting Tobacco : Care Instructions jpolgar Not available 01/29/2018 10:41:10 Counseling done Goal for follow up visit Health To Do List jpolgar Not available 01/29/2018 10:33:18 03/24/2018 [id number] Counseling done Contemplating quitting prescription for stop smoking medication given Goal for follow up visit stress management After a discussion of treatment and medication options, which included consideration of the best practices in medicine, a medical plan was provided. The patient's opinions and concerns were included in this treatment plan and goal. follow up in 1 month for smoking. Counseling done Goal for follow up visit My Health To Do List Not available 03/24/2018 17:29:45 04/07/2018 [id number] Patient states h e will pursue prefabricated orthotics at this time and return if symptoms persist. jerskine Not available 04/07/2018 09:22:54 04/28/2018 [id number] deciding about using medicines to quit smoking Not available 04/28/2018 08:29:49 Counseling done Contemplating quitting -After a discussion of treatment and medication options, which included consideration of the best practices in medicine, a medical plan was provided. The patient's opinions and concerns were included in this treatment plan and goal. -SEE THE GOALS AND PLAN IN THE ASSESSMENT AND PLAN SECTION WRITTEN ABOVE. Not available 04/28/2018 08:31:39 07/09/2018 [id number] deciding about using medicines to quit smoking [...] in for reassessment (urgent care available in [place] office Sat 9-4 and Friday 9-12 by appointment - call after 8AM for appt. 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 Referral for Plan tar fasciitis L heel pain Referring Physician: Paula Carmona, Psychiatry, Encounter Date: 03/24/2018 Health Coaching Referral for Tobacco user 52 yo m who wants to do nrt Referring Physician: Paula Carmona, Psychiatry, Encounter Date: 04/28/2018 Results Created Date Observation Date Name Description Value Unit Range Abnormal Flag Note LastModifiedBy Organization Detail LastModifiedTime 07/09/20 18 07/09/2018 pocst pa strep A POC Negati ve Not Available [address], [place], [address], 07/09/2018 08:26:19 07/09/20 18 07/12/2018 cultu reasa culture, throat CULTU REASA MICRO NUMBE R: [id number] TEST STATU S: FINAL SPECI MEN SOURC E: THROA T SPECI MEN QUALI TY: ADEQU ATE RESUL T: No oroph aryng eal patho gens recov ered. Not Available [employer] [facility] [address] [place] [address], [place], [address], 07/14/2018 09:57:21 Result Notes None recorded. Procedures Surgical History Date Name Laterality Status Provider Name and Address Organization Details Recorded Time 3 Khoa - Colonoscopy completed Garfield Couch MD [address] [place] [address], [phone], [facility] 10/21/2022 14:15:03 Imaging Results None recorded. Procedure [...] Relief 50 mcg/actuat ion nasal spray,susp ension Prospect 1 spray every day by intranas al route. 03/18 completed Pt no longer taking. Not Available Not Available Not Available Vitals None Recorded Social History Question Answer Notes LastModified by Organizat ion Details LastModified Time Do You Wear A Helmet When Biking? Yes [id number] Information not available 08/15/2020 What Is Your Level Of Caffeine Consumption? Moderate 2 Cups A Day [id number] Information not available 08/15/2020 How Much Tobacco Do You Chew? None [id number] Information not available 08/15/2020 What Type Of Diet Are You Following? REGULAR [id number] Information not available 08/15/2020 Education 2 Year College aesparzaharvey Information not available 09/21/2013 Are There Any Guns Present In Your Home? No [id number] Information not available 08/15/2020 Live Alone Or With Others? With Others [email or web address] Information not available 09/12/2011 Patient Has Health Care Proxy Signed And In Chart No 4/12/17 [email or web address] Information not available 10/29/2011 Marital Status aesparzaperez Informa tion not available 09/21/2013 Mosquito Repellent Used Routinely Yes ryanqurach Information not available 09/21/2013 What Was The Date Of Your Most Recent Tobacco Screening? 03/24/2018 [id number] Information not available 08/15/2020 How Many Children Do You Have? 1 Son B'14 [id number] Information not available 08/15/2020 What Is Your Current Pack Years? 20-29packyear s [id number] Information not available 08/15/2020 Seat Belts Used Routinely Yes [email or web address] Information not available 09/21/2013 Are You Sexually Active? Yes [id number] Information not available 08/15/2020 Smoke Alarm In Home Yes [email or web address] Information not available 09/21/2013 At What Age Did You Start Smoking Tobacco? 17 [id number] Information not available 08/15/2020 Do You Use Sunscreen Routinely? Yes [id number] Information not available 08/15/2020 Sex: Unknown Functional Status Question Answer Note LastModified by Organizat ion Details LastModified Time What is your level of alcohol consumption? Occasional 0-5/week. 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 worked for [employer] [id number] Information not available 08/15/2020 Mental Status None recorded. Family History Nothing Reported Notes:adopted, does not know family history VINNIE: 0 SON: 1: a&w Medical History No medical history recorded. Past Encounters Encounter ID Performer Location Encounter Start Date Encounter Closed Date Diagnosis/Indication Diagnosis SNOMED-CT Code Diagnosis ICD10 Code Diagnosis Note [id number] Myrtle Montiel MD , [facility], OFFICE [address] [place] [address] 09/12/2011 14:57:42 09/12/2011 16:02:50 [id number] [facility] RADIOLOGY Technologi Radiology , [facility] [address] [place] [address] 09/12/2011 16:06:21 09/13/2011 11:21:20 [id number] [facility] ULTRASOUND Technologi Radiology , [facility] [address] [place] [address] 09/13/2011 08:10:44 09/16/2011 14:26:44 [id number] Myrtle Montiel MD , [facility], OFFICE [address] [place] [address] [place] [address] 10/29/2011 08:04:20 10/29/2011 08:53:09 [id number] Myrtle Montiel MD , [facility], [address] [place] [address] 02/10/2012 11:20:21 02/10/2012 12:25:58 [id number] Walter Landry MD , [facility], [address] [place] [address] 12/11/2012 10:41:54 12/11/2012 11:21:11 [id number] Myrtle Montiel MD , [facility], [address] [place] [address] 02/26/2013 14:49:43 02/26/2013 15:57:55 [id number] Myrtle Montiel MD , [facility], [address] [place] [address] 04/05/2013 09:51:55 04/05/2013 10:34:59 [id number] Jerardo skelton MD , [facility], [address] [place] [address] 09/21/2013 08:01:27 09/21/2013 08:36:16 [id number] Jerardo skelton MD , [facility], [address] [place] [address] 03/14/2014 16:03:38 03/14/2014 16:34:04 [id number] Tyler Amaya MD , [facility], [address] [place] [address] 08/26/2014 13:50:15 08/26/2014 14:23:25 [id number] Walter Landry MD , [facility], [address] [place] [address] 02/10/2015 10:16:58 02/10/2015 11:30:31 [id number] Elisa Thorne NP , [facility], [address] [place] [address] 06/23/2015 07:45:22 06/23/2015 08:17:20 [id number] Елена Smith, OT Physical Therapy, [facility] [address] [place] [address] 07/03/2015 15:48:26 07/03/2015 16:38:43 [id number] Kunal Gloden MD , [facility], OFFICE [address] [place] [address] [place] [address] 10/08/2016 10:31:23 10/08/2016 11:24:50 [id number] Walter Landry MD , [facility], OFFICE [address] [place] [address] [place] [address] 01/22/2017 13:35:58 01/23/2017 14:29:04 [id number] Aline Oscar MD , [facility], OFFICE [address] [place] [address] [place] [address] 03/18/2017 13:40:02 03/18/2017 14:21:20 [id number] Aline Oscar MD , [facility], OFFICE [address] [place] [address] [place] [address] 10/01/2017 08:46:16 10/01/2017 09:28:56 [id number] Walter Landry MD , [facility], OFFICE [address] [place] [address] [place] [address] 01/29/2018 10:20:38 01/29/2018 10:58:39 [id number] Garfield Francisco MD , [facility], OFFICE [address] [place] [address], [place] [address] 03/24/2018 16:15:04 03/24/2018 17:23:50 [id number] Josue Julian DPM Podiatry, [address] [place] [address] 04/07/2018 08:49:03 04/07/2018 09:24:01 [id number] Garfield Francisco MD , [facility], OFFICE [address] [place] [address] 04/28/2018 07:58:52 04/28/2018 08:36:19 [id number] Gabriella Pederson , [facility], OFFICE [address] [place] [address], [place] [address] 07/09/2018 08:07:48 07/09/2018 08:31:24 [id number] Garfield Couch MD Endoscopy , [address] [address] 10/21/2022 12:51:59 10/22/2022 08:23:57 Health Concerns Section Related Observation LastModified by Organization Detai ls LastModified Time None Recorded Concern Status LastModified by Organization Details LastModified Time None Recorded Advance Directives Directive None Recorded Payers Insurance Date Sequence Insurance Name Policy Number Policy Craven Covered Member ID Craven Member ID Guarantor Name 11/19/2022 1 [facility] [id number] 1 Geo Gardner [id number] Geo Gardner 07/25/2022 1 [facility] - CONNECTORCARE 2 (O) [id number] Geo Gardner [id number] Geo Gardner 07/25/2022 1 [facility] PUBLIC PLANS [facility] - DIRECT CONNECTORCARE TYPE III (HMO) Geo Gardner [id number] Geo Gardner 07/25/2022 1 [employer] - MULTIPLAN (PPO) [id number] Geo Gardner [id number] Geo Gardner
[2025-04-22 11:31] LABS: MANUAL DIFF FLAG NO
[2025-04-22 11:47] LABS: Alanine Aminotransferase 26 U/L (0-40); Albumin Level 4.7 g/dL (3.5-5.0); Alkaline Phosphatase 66 U/L (39-117); Anion Gap 12 (12-20); Aspartate Amino Transferase 22 U/L (5-37); Blood Urea Nitrogen 11 mg/dL (9-16); Calcium 9.3 mg/dL (8.4-10.2); Carbon Dioxide 24 mmol/L (22-29); Chloride 105 mmol/L (96-108); Estimated Glomerular Filt Rate > 60; Potassium 3.9 mmol/L (3.3-5.1); Sodium 137 mmol/L (135-145); Total Protein 7.5 g/dL (6.5-8.0)
[2025-04-22 11:48] LABS: Hematocrit 42.8 % (42.0-52.0); Hemoglobin 15.7 g/dl (14.0-18.0); Imm Gran Abs Auto 0.05 X10*3/uL (0.00-0.03); Imm Gran Pct Auto 0.6 % (0.0-0.4); Lymphocytes Absolute Auto 2.8 X10*3/uL (1.2-4.9); Mean Corpuscular HGB Conc 36.7 g/dl (31.0-36.0); Mean Corpuscular Hemoglobin 31.8 pg (27.0-33.0); Mean Corpuscular Volume 86.8 fL (80.0-98.0); NRBC Abs Auto 0.000 X10*3/uL (0.0-0.012); NRBC Pct Auto 0.0 /100WBC (0.0-0.2); Platelet Count 228 X10*3/uL (160-400); Red Blood Count 4.93 X10*6/uL (4.60-5.80); White Blood Count 8.6 X10*3/uL (4.8-10.8)
[2025-04-23 08:34] LABS: ~HepC Num1 0.21 S/CO (0.00-0.79); ~Hepatitis C Antibody Nonreactive (Nonreactive)
[2025-04-25 13:28] LABS: HIV RNA PCR Qn Copies NOT DETECTED copies/mL (NOT DETECTED); HIV RNA PCR Qn Log Copies NOT DETECTED (NOT DETECTED)
[2025-04-26 20:32] LABS: Absolute CD3 Count 2641 cells/uL (840-3060); Absolute CD8 Count 1190 cells/uL (180-1170); Percent CD3 Cells 89 % (57-85); Percent CD8 Cells 40 % (12-42)
== END 2025-04-22 09:21 | disposition home or self-care (01) ==
LOC: HO.HHCL 09:20
PROVIDERS: PCP General Practice; Visit Provider Internal Medicine
DX: Z21 Asymptomatic human immunodeficiency virus [HIV] infection status (principal)
CPT/HCPCS: 36415; 80053; 85025; 86359; 86360; 86803; 87536

== ENCOUNTER 2025-08-31 08:34 | Outpatient (REF) | payer OTHER, SELFPAY ==
--- NOTE | ~2025-08-31 | MM_ITS ---
EXAMINATION: DXA BONE DENSITY AXIAL HISTORY: bone disorder TECHNIQUE: Einspect Dual energy absorptiometry (DEXA) of the lumbar spine, total left hip, and femoral neck was performed. COMPARISON: There are no prior studies for comparison. FINDINGS: The bone mineral density of the lumbar spine is 0.738 g/cm2, corresponding to a T-score of -4.0, and a Z-score of -3.6. This is indicative of osteoporosis. The bone mineral density of the left total hip is 0.778 g/cm2, corresponding to a T-score of -2.2, and a Z-score of -1.7. This is indicative of osteopenia. The bone mineral density of the left femoral neck is 0.753 g/cm2, corresponding to a T-score of -2.4, and a Z-score of -1.4. This is indicative of osteopenia. FRACTURE RISK: The FRAX index suggests a risk of major osteoporotic fracture of 9.0%, and of hip fracture 3.0%. MM/XR DEXA axial skeleton IMPRESSION: Based on bone mineral density, and according to World Health Organization (WHO) criteria, the diagnosis is consistent with osteoporosis. Statistically, 68% of repeat scans fall within 1 SD (+/- 0.010 g/cm2 for AP spine L1-L4) and 1 SD (+/- 0.012 g/cm2 for femur total) FRAX is a trademark of the [employer] [place] for Metabolic Bone Disease, a World Health Organization (WHO) Collaborating Center. Electronically signed by: Tyler Singleton MD 08/31/2025 08:54 AM EST
== END 2025-08-31 08:35 | disposition home or self-care (01) ==
LOC: HO.MAMMO 08:34
PROVIDERS: PCP General Practice; Visit Provider Internal Medicine
DX: M85.852 Other specified disorders of bone density and structure, left thigh (principal); M81.0 Age-related osteoporosis without current pathological fracture
CPT/HCPCS: 77080

== ENCOUNTER → 2025-08-31 08:45 | Outpatient (BNV) | payer OTHER, SELFPAY | PROVIDERS: PCP General Practice; Visit Provider Radiology Diagnostic Radiology | DX: M89.9 Disorder of bone, unspecified (principal) | CPT/HCPCS: 77080 ==

== ENCOUNTER 2025-09-23 08:14 | Outpatient (REF) | payer OTHER, SELFPAY ==
[2025-09-23 11:01] LABS: MANUAL DIFF FLAG NO
[2025-09-23 11:20] LABS: Hematocrit 45.5 % (42.0-52.0); Hemoglobin 15.7 g/dl (14.0-18.0); Imm Gran Abs Auto 0.06 X10*3/uL (0.00-0.03); Imm Gran Pct Auto 0.8 % (0.0-0.4); Lymphocytes Absolute Auto 2.5 X10*3/uL (1.2-4.9); Mean Corpuscular HGB Conc 34.5 g/dl (31.0-36.0); Mean Corpuscular Hemoglobin 32.0 pg (27.0-33.0); Mean Corpuscular Volume 92.7 fL (80.0-98.0); NRBC Abs Auto 0.000 X10*3/uL (0.0-0.012); NRBC Pct Auto 0.0 /100WBC (0.0-0.2); Platelet Count 233 X10*3/uL (160-400); Red Blood Count 4.91 X10*6/uL (4.60-5.80); White Blood Count 7.7 X10*3/uL (4.8-10.8)
[2025-09-23 11:41] LABS: Alanine Aminotransferase 41 U/L (0-40); Albumin Level 4.7 g/dL (3.5-5.0); Alkaline Phosphatase 69 U/L (39-117); Anion Gap 11 (12-20); Aspartate Amino Transferase 28 U/L (5-37); Blood Urea Nitrogen 12 mg/dL (9-16); Calcium 9.7 mg/dL (8.4-10.2); Carbon Dioxide 27 mmol/L (22-29); Chloride 105 mmol/L (96-108); Cholesterol 189 mg/dL (<200); Estimated Glomerular Filt Rate > 60; HDL Cholesterol 47 mg/dL (>40); Potassium 4.2 mmol/L (3.3-5.1); Sodium 139 mmol/L (135-145); Total Protein 7.6 g/dL (6.5-8.0); Triglycerides 133 mg/dL (<150)
[2025-09-23 11:55] LABS: ~HepC Num1 0.10 S/CO (0.00-0.79); ~Hepatitis C Antibody Nonreactive (Nonreactive)
[2025-09-23 11:59] LABS: Syphilis Screen Nonreactive (Nonreactive)
[2025-09-23 13:08] LABS: Reflex LDLD? No
== END 2025-09-23 08:15 | disposition home or self-care (01) ==
LOC: HO.HHCL 08:14
PROVIDERS: PCP General Practice; Visit Provider Internal Medicine
DX: Z21 Asymptomatic human immunodeficiency virus [HIV] infection status (principal); Z11.59 Encounter for screening for other viral diseases; Z20.2 Contact with and (suspected) exposure to infections with a predominantly sexual mode of transmission; Z13.6 Encounter for screening for cardiovascular disorders
CPT/HCPCS: 36415; 80053; 80061; 85025; 86359; 86360; 86780; 86803; 87536